=== PATIENT | male | born 1980 | race Caucasian/White ===

== ENCOUNTER → 2021-04-03 | Outpatient (CLI) | payer OTHER ==
[~2021-04-03] MED LIST: CLINDAMYCIN HC300 MG PO; FLONASE 0.05% N16 GM; IBUPROFEN600 MG PO; PREDNISONE 50 M50 MG PO; ZITHROMAX250 MG PO; ZYRTEC10 M3 PO
== END ==
LOC: LAB 05:01
DX: Z53.9 Procedure and treatment not carried out, unspecified reason (principal)
CPT/HCPCS: 36415